=== PATIENT | female | born 1955 | race Caucasian/White ===

== ENCOUNTER 2018-09-18 09:09 | Outpatient (CLI) | payer BC ==
[~2018-09-18 09:09] MED LIST: Iopamidol 370 76% 100 ML VIAL ONE
--- NOTE | 2018-09-18 12:47 | CT ---
CT ABDOMEN WITH AND WITHOUT CONTRAST: CT PELVIS WITH AND WITHOUT CONTRAST: HISTORY: Bilateral lower abdominal pain, intermittent. Past medical history includes lymphoma, endometriosis, calculi, and a hysterectomy. Evaluate for diverticulosis/diverticulitis. COMPARISON: None. FINDINGS: ABDOMEN: The lung bases are clear. There appear to be coronary calcifications. The heart size is wi thin normal limits. No pericardial effusion. Atherosclerosis of a nonaneurysmal descending thoracic and abdominal aorta. Hypoattenuation in the liver is too small to characterize but may represent an 8 mm cyst. No enhancing masses in the liver. The spleen, pancreas, and adrenal glands have appropr iate enhancement. There is enhancement of the portal vein. Unremarkable gallbladder. No gastrohepatic, retrocrural, or periportal lymphadenopathy. Symmetric enhancement of the kidneys. Bilaterally, no obstructive uropathy. No mesenteric mass, lymphadenopathy, free air, or free fluid. Gastric mucosa, duodenum, and multiple normal caliber small bowel loops are identified. No bowel obs truction. The ileocecal junction is normal. Normal caliber appendix. Contrast and fecal material i n a nondistended, nondilated colon. Occasional diverticulum. No evidence of diverticulitis. PELVIS: Decompressed urinary bladder limits evaluation. No pelvic mass, lymphadenopathy, free air, or free fluid. Hysterectomy changes are noted. No lytic or blastic lesions in the osseous structures. IMPRESSION: No acute abnormality in the abdomen or pelvis. Phone message left with Dr. Frey's office on 09/19/19 at 11:10 a.m. CODE CR POS: [facility]
== END 2018-09-18 09:10 | disposition home or self-care (01) ==
LOC: CT 09:09
PROVIDERS: ATTEND Internal Medicine Gastroenterology
DX: R10.11 Right upper quadrant pain (principal); R10.12 Left upper quadrant pain; R10.13 Epigastric pain; R10.30 Lower abdominal pain, unspecified
CPT/HCPCS: 74178; Q9967

== ENCOUNTER 2022-07-05 08:49 | Outpatient (CLI) | payer MEDICARE, BC | END 2022-07-05 08:50 | disposition home or self-care (01) | LOC: SCSCT 08:49 | PROVIDERS: ATTEND Internal Medicine | DX: M79.604 Pain in right leg (principal); M25.461 Effusion, right knee ==

== ENCOUNTER 2023-02-16 09:00 | Inpatient (IN) | payer MEDICARE, BC ==
[2023-02-16 09:48] VITALS: BMI 23.9
[2023-02-20] MEDS ORDERED: HYDROmorphone 2 MG/ML VIAL ONE (06:20)
[2023-02-20] MEDS ORDERED: fentaNYL 50 mcg/mL 1 mL Vial ONE (06:20)
[2023-02-20] MEDS ORDERED: Midazolam HCl 2 mg/2 ml Vial ONE (06:20)
[2023-02-20] MEDS ORDERED: Phenylephrine 10 MG/ML VIAL ONE (06:20)
[2023-02-20] MEDS ORDERED: Vancomycin 1 GM VIAL ONE (06:26)
[2023-02-20] MEDS ORDERED: Thrombin 5000 UNITS/5 ML VIAL ONE (06:26)
[2023-02-20] MEDS ORDERED: Sodium Chloride 0.9% 100 ML ONE (06:53)
[2023-02-20] MEDS ORDERED: CEFAZOLIN 2 GM VIAL ONE (06:53)
[2023-02-20] MEDS ORDERED: Ondansetron PF 4 MG/2 ML Vial ONE (07:13)
[2023-02-20] MEDS ORDERED: Dexamethasone 20 MG/5 ML VIAL ONE (07:13)
[2023-02-20] MEDS ORDERED: Lidocaine 1% PF 5 ML VIAL ONE (07:13)
[2023-02-20] MEDS ORDERED: PHENYLEPHRINE-NS 100 MCG/ML 10 ML SYRINGE ONE (07:13)
[2023-02-20] MEDS ORDERED: PROPOFOL 200 MG/20 ML VIAL ONE (07:13)
[2023-02-20] MEDS ORDERED: Rocuronium Bromide 10 MG/ML (10ML VIAL) ONE (07:13)
[2023-02-20 07:22] LABS: Hematocrit 34.8 % (36.0-47.0); Hemoglobin 10.5 g/dL (12.0-16.0); Mean Corpuscular HGB CONC 30.2 g/dL (32.0-36.0); Mean Corpuscular Hemoglobin 20.4 pg (27.0-31.0); Mean Corpuscular Volume 67.7 fl (78.0-98.0); Platelet Count 291 10x3/uL (130-400); RBC Distribution Width 18.6 % (11.5-14.5); Red Blood Cell (RBC) Count 5.14 mill/uL (4.20-5.40); White Blood Cell (WBC) Count 9.1 10x3/uL (4.8-10.8)
[2023-02-20 07:45] LABS: Anion Gap 16 mmol/L (10-20); BUN (Urea Nitrogen) 26 mg/dL (9.8-20.1); Calc. Creatinine Clearance 49 mL/min (70-130); Calcium 9.5 mg/dL (7.8-10.44); Carbon Dioxide 21 mmol/L (23-31); Chloride 103 mmol/L (98-107); Estimated GFR 56; Glucose 156 mg/dL (80-115); Sodium 136 mmol/L (136-145)
[2023-02-20] MEDS ORDERED: SUGAMMADEX SODIUM 200 MG/2 ML VIAL ONE (11:28)
[2023-02-20] MEDS ORDERED: Promethazine HCl 25 MG/ML VIAL IM PRN (11:46)
[2023-02-20] MEDS ORDERED: HYDROmorphone 2 MG/ML VIAL SLOW IVP PRN (11:46)
[2023-02-20] MEDS ORDERED: Ondansetron HCl/PF 4 MG/2 ML Vial IVP PRN (11:46)
== END 2023-02-20 14:17 | disposition home or self-care (01) | DRG 472 ==
LOC: SURG A 02-20 06:13
PROVIDERS: ADMIT Neurological Surgery; ATTEND Neurological Surgery
PROC: 0RG20A0 Fusion of 2 or more Cervical Vertebral Joints with Interbody Fusion Device, Anterior Approach, Anterior Column, Open Approach (ICD-10-PCS; principal; 2023-02-20)
PROC: 01N10ZZ Release Cervical Nerve, Open Approach (ICD-10-PCS; 2023-02-20)
PROC: 00NW0ZZ Release Cervical Spinal Cord, Open Approach (ICD-10-PCS; 2023-02-20)
PROC: 0RB30ZZ Excision of Cervical Vertebral Disc, Open Approach (ICD-10-PCS; 2023-02-20)
DX: M48.02 Spinal stenosis, cervical region (principal); M50.021 Cervical disc disorder at C4-C5 level with myelopathy; M50.022 Cervical disc disorder at C5-C6 level with myelopathy; M50.023 Cervical disc disorder at C6-C7 level with myelopathy; R26.81 Unsteadiness on feet; D64.9 Anemia, unspecified; E78.00 Pure hypercholesterolemia, unspecified; E11.9 Type 2 diabetes mellitus without complications; I11.9 Hypertensive heart disease without heart failure; Z90.710 Acquired absence of both cervix and uterus; Z98.890 Other specified postprocedural states; Z82.49 Family history of ischemic heart disease and other diseases of the circulatory system; Z79.84 Long term (current) use of oral hypoglycemic drugs; Z79.82 Long term (current) use of aspirin; Z79.899 Other long term (current) drug therapy; Z83.3 Family history of diabetes mellitus; Z88.2 Allergy status to sulfonamides; Z88.8 Allergy status to other drugs, medicaments and biological substances; Z80.9 Family history of malignant neoplasm, unspecified
CPT/HCPCS: 36416; 80048; 85027; C1713; J1170; J2250; J2370; J3010; J3370; J3490

== ENCOUNTER 2023-02-16 09:15 | Outpatient (CLI) | payer MEDICARE, BC ==
[2023-02-16 10:41] LABS: INR-International Normal Ratio 0.9; Prothrombin Time 9.8 sec (9.5-12.1)
== END 2023-02-16 09:16 | disposition home or self-care (01) ==
LOC: LABBT 09:15
PROVIDERS: ATTEND Neurological Surgery
DX: Z01.818 Encounter for other preprocedural examination (principal); M50.022 Cervical disc disorder at C5-C6 level with myelopathy; M50.023 Cervical disc disorder at C6-C7 level with myelopathy; M50.021 Cervical disc disorder at C4-C5 level with myelopathy
CPT/HCPCS: 85610; 93005; 93010

== ENCOUNTER 2024-01-22 12:58 | Outpatient (CLI) | payer MEDICARE, BC | END 2024-01-22 12:59 | disposition home or self-care (01) | LOC: BICMRI 12:58 | PROVIDERS: ATTEND Family Medicine | DX: R92.30 Dense breasts, unspecified (principal); Z80.3 Family history of malignant neoplasm of breast; R92.333 Mammographic heterogeneous density, bilateral breasts | CPT/HCPCS: 82565; A9577; C8908 ==